=== PATIENT | male | born 1970 | race Caucasian/White ===

== ENCOUNTER 2018-09-14 13:31 | Emergency (ER) | payer MEDICAID ==
[2018-09-14] MEDS: IBUPROFEN 600 MG TAB PO (15:26)
== END 2018-09-14 17:09 | disposition home or self-care (01) ==
LOC: FTE 13:31
DX: M25.512 Pain in left shoulder (principal); F17.210 Nicotine dependence, cigarettes, uncomplicated; R03.0 Elevated blood-pressure reading, without diagnosis of hypertension
CPT/HCPCS: 73030; 99283-25